=== PATIENT | male | born 1990 | race African-American/Black ===

== ENCOUNTER 2022-01-19 11:35 | Emergency (ER) | payer BC ==
[2022-01-19 11:41] VITALS: BP 114/75; PULSE 88; RESP 18; TEMP 97.9; BMI 47.3
== END 2022-01-19 13:28 | disposition home or self-care (01) ==
LOC: JER 11:35
DX: J10.1 Influenza due to other identified influenza virus with other respiratory manifestations (principal)
CPT/HCPCS: 0241U-QW; 87651; 99283-25